=== PATIENT | male | born 1965 | race Asian ===

== ENCOUNTER 2016-10-16 12:27 | Emergency (ER) | payer OTHER ==
[~2016-10-16] VITALS: Ht 172.7 cm; Wt 68.5 kg
[2016-10-16 12:48] VITALS: Ht 172.7 cm; Wt 68.5 kg
--- NOTE | 2016-10-16 14:01 | RADRPT ---
PROCEDURE: Left XR Hand. CLINICAL INDICATION: Trauma. TECHNIQUE: AP, oblique and lateral views of the left hand were obtained. COMPARISON: No. FINDINGS: An oblique fracture extends to the proximal half of the diaphysis of the left third metacarpal bone. 2 mm of ulnar displacement of the distal fracture fragment is noted. There is adjacent soft tissu e swelling. The other bony elements are normal. IMPRESSION: 1. An oblique displaced fracture occurred through the proximal half of the diaphysis of the left thi rd metacarpal bone. RPTAT:AAJJ Physician Alix Date Time Electronically viewed and signed by Physician Alix on 10/16/2016 14:00 /
[2016-10-16] MEDS ORDERED: IBUP-1542 PO (14:05)
--- NOTE | 2016-10-16 14:09 | ERD ---
ER Documentation Chief Complaint Date/Time DATE: 10/16/16 TIME: 14:08 Chief Complaint LEFT HANFD PAIN AND SWELLING HPI This 50-year-old male presents with left hand pain and swelling after grappling during martial arts. He said that his left hand was grasped forcefully. He denies restricted range of motion or weakness or bleeding or lacerations. ROS All systems reviewed and are negative except as per history of present illness. Medications Home Meds Active Scripts Ibuprofen* (Motrin*) 600 Mg Tab, 600 MG PO Q6, #20 TAB Prov:HUNTER CARNES MD 10/16/16 Allergies Allergies: Uncoded Allergies: PENICILLIN (Allergy, Severe, rash, 10/16/16) PMhx/Soc Medical and Surgical Hx: pt denies Medical Hx, pt denies Surgical Hx Hx Alcohol Use: No Hx Substance Use: No Hx Tobacco Use: No Physical Exam Vitals Vital Signs Date Time Temp Pulse Resp B/P Pulse Ox O2 Delivery O2 Flow Rate FiO2 10/16/16 12:48 98.2 57 20 152/96 99 Physical Exam Const: [] Alert, [id number] per Head: Atraumatic Eyes: Normal Conjunctiva ENT: Normal External Ears, Nose and Mouth. Neck: Full range of motion..~ No meningismus. Resp: Clear to auscultation bilaterally Cardio: Regular rate and rhythm, no murmurs Abd: Soft, non tender, non distended. Normal bowel sounds Skin: No petechiae or rashes Back: No midline or flank tenderness Ext: No cyanosis, or edema. There is some tenderness and swelling around the left hand metacarpals. There is no restricted range of motion weakness or evidence of ischemia, tendon or neurologic deficits. There is no wrist tenderness or elbow tenderness Neur: Awake and alert Psych: Normal Mood and Affect Procedures/MDM X-ray left hand 3V interpreted by me: Scaphoid: [Normal] Bones: There is an oblique fracture through the midshaft left third metacarpal. Joints: [No dislocation] Foreign body: [None]. Minimally angulated left midshaft third metacarpal fracture. Patient was placed in a left short arm hand splint. Splint Assessment: Neurovascularly intact post splint placement with good fit. Patient was also placed in a left arm sling. Patient presents with left hand fracture without evidence of ischemia, tendon or neurologic deficit or bacterial infection. He will be discharged home with instructions to follow-up with orthopedist within the next week. He is advised he may need authorization from primary care doctor. The patient was stable with no new complaints during the ER course. Clinically, there is no current evidence to suggest meningitis, sepsis, acute abdomen, pneumonia, acute coronary syndrome, pulmonary embolism, or any other emergent condition appearing to require further evaluation or hospitalization. The patient should certainly return for any new or worsening symptoms per the aftercare instructions. They should otherwise follow-up with her primary care doctor for reevaluation this week. Departure Diagnosis: Primary Impression: Hand fracture, left Encounter type: initial encounter Fracture type: closed Qualified Code: S62.92XA - Hand fracture, left, closed, initial encounter Condition: Stable Patient Instructions: Treating Hand Fractures, Fracture, Hand (Closed) Referrals: KEMI ESCOBEDO MDIN DALIA TELLEZ Additional Instructions: See orthopedist for further evaluation within the next week. May need authorization from primary doctor for orthopedist visit. HUNTER CARNES MD Oct 16, 2016 14:09
== END 2016-10-16 15:14 | disposition home or self-care (01) ==
LOC: FTE 12:27
DX: S62.303A Unspecified fracture of third metacarpal bone, left hand, initial encounter for closed fracture (principal); X50.9XXA Other and unspecified overexertion or strenuous movements or postures, initial encounter; Y92.9 Unspecified place or not applicable